=== PATIENT | female | born 1950 | race Caucasian/White ===

== ENCOUNTER 2023-04-28 14:40 | Emergency (ER) | payer MEDICARE, OTHER ==
[~2023-04-28] VITALS: Ht 154.9 cm; Wt 90.7 kg
[2023-04-28] MEDS ORDERED: DIGOXIN 500 MCG/2 ML AMP IV ONE (15:00)
[2023-04-28] MEDS ORDERED: DILTIAZEM HCL 25 MG IV IV ONE (15:00)
[2023-04-28] MEDS ORDERED: MAGNESIUM SULFATE/D5W 100 ML IV ONE ×2 (15:00→15:45)
[2023-04-28 15:07] LABS: BASOPHILS # (AUTO) 0.1 K/UL (0.0-0.2); BASOPHILS % (AUTO) 0.7 % (0.0-2.0); EOSINOPHILS # (AUTO) 0.2 K/uL (0.0-0.7); EOSINOPHILS % (AUTO) 2.2 % (0.0-7.0); HEMATOCRIT 34.2 % (31.2-41.9); HEMOGLOBIN 11.4 g/dL (10.9-14.3); LYMPHOCYTES % (AUTO) 24.6 % (20.5-51.5); MEAN CORPUSCULAR HGB CONC 33 g/dL (32.3-35.6); MEAN CORPUSCULAR VOLUME 86.9 fL (75.5-95.3); MONOCYTES # (AUTO) 0.7 K/uL (0.1-1.30); MONOCYTES % (AUTO) 8.4 % (0.0-11.0); NEUTROPHILS # (AUTO) 5.1 K/uL (1.8-8.9); NEUTROPHILS % (AUTO) 64.1 % (38.5-71.5); PLATELET COUNT (AUTO) 331 K/uL (179-408); RED BLOOD CELL COUNT(AUTO) 3.93 MIL/uL (3.63-4.92); RED CELL DISTRIBUTION WIDTH 13.6 % (12.3-17.7)
[2023-04-28] MEDS ORDERED: MAGNESIUM SULFATE/D5W 200 ML ONE ×2 (15:09→16:19)
[2023-04-28] MEDS ORDERED: DIGOXIN 500 MCG/2 ML AMP ONE (15:23)
[2023-04-28] MEDS ORDERED: DILTIAZEM HCL 25 MG IV ONE (15:24)
[2023-04-28 15:31] LABS: ALANINE AMINOTRANSFERASE 13 U/L (14-59); ALBUMIN 3.2 g/dL (3.4-5.0); ALKALINE PHOSPHATASE 104 U/L (50-136); ASPARTATE AMINOTRANSFERASE 9 U/L (15-37); BILIRUBIN,DIRECT 0.2 mg/dL (0.0-0.2); BILIRUBIN,TOTAL 0.5 mg/dL (0.2-1.0); CARBON DIOXIDE 21 mmol/L (21-32); CHLORIDE 103 mmol/L (98-107); CREATININE 0.7 mg/dL (0.6-1.3); GLUCOSE 256 mg/dL (74-106); POTASSIUM 4.3 mmol/L (3.5-5.1); SODIUM SERUM 134 mmol/L (136-145); TOTAL PROTEIN, SERUM 6.8 g/dL (6.4-8.2); UREA NITROGEN, BLOOD 15 mg/dL (7-18)
[2023-04-28] MEDS ORDERED: OMEP1CAP24 PO (16:47)
[2023-04-28] MEDS ORDERED: MELO5CAP PO (16:47)
[2023-04-28] MEDS ORDERED: NITR0.4T48 SL (16:48)
[2023-04-28] MEDS ORDERED: GLIP10TA11 PO (16:48)
[2023-04-28] MEDS ORDERED: ROSU20TA2 PO (16:48)
[2023-04-28] MEDS ORDERED: LORA5SOL38 PO (16:48)
[2023-04-28] MEDS ORDERED: CLOP75TA15 PO (16:48)
[2023-04-28] MEDS ORDERED: SEMA7TAB PO (16:48)
[2023-04-28] MEDS ORDERED: RAMI5CAP66 PO (16:48)
[2023-04-28] MEDS ORDERED: ASPI81TA31 PO (16:48)
[2023-04-28] MEDS ORDERED: DAPA10TA PO (16:48)
[2023-04-28] MEDS ORDERED: CARV6.252 PO (16:48)
[2023-04-28] MEDS ORDERED: APIX5TAB4 PO (17:33)
[2023-04-28] MEDS ORDERED: MAGN64TA9 PO (17:33)
[2023-04-28 17:55] VITALS: BP 121/68; TEMP 98.6; O2SAT 97
== END 2023-04-28 18:44 | disposition home or self-care (01) ==
LOC: ER 14:40
DX: I48.92 Unspecified atrial flutter (principal); Z79.899 Other long term (current) drug therapy; Z79.82 Long term (current) use of aspirin
CPT/HCPCS: 99291; 96365; 96366; 96375; 80076; 80048; 83880; 83735; 84443; 85025; 84484; 36415; 93005; 71045; J1160; J3490; J3475 ×2; A4606; A4663